=== PATIENT | male | born 1965 | race Native Hawaiian/Other Pacific Islander ===

== ENCOUNTER 2022-10-26 09:06 | Observation (INO) | payer OTHER ==
[~2022-10-26] VITALS: Ht 180.3 cm; Wt 65.0 kg
[2022-10-26] VITALS (10 sets, daily range): BP systolic 103–127; BP diastolic 69–78; TEMP 98–99.1; Ht 180.3 cm; Wt 65.0 kg
[2022-10-26 09:25] LABS: PLATELET COUNT 203 K/uL (142-355)
[2022-10-26 09:37] LABS: POTASSIUM 3.7 mmol/L (3.6-5.2)
[2022-10-26 09:44] LABS: PARTIAL THROMBOPLASTIN TIME 31.3 SECONDS (24.5-33.6)
[2022-10-27 03:50] VITALS: BP 107/74; TEMP 98.5
[2022-10-27 08:00] VITALS: BP 115/67; TEMP 98.63
[2022-10-27 12:00] VITALS: BP 103/65; TEMP 97.8
[2022-10-27] MEDS ORDERED: PRED10TA27 PO (15:30)
[2022-10-27] MEDS ORDERED: AZIT250T3 PO (15:31)
[2022-10-27] MEDS ORDERED: ALBU90AE13 INH (15:33)
== END 2022-10-27 14:38 | disposition home or self-care (01) ==
LOC: ED 09:06 → MED/SURG 12:20
PROVIDERS: Emergency Medicine; ADMIT Internal Medicine; ATTEND Internal Medicine
DX: J44.1 Chronic obstructive pulmonary disease with (acute) exacerbation (principal); Z72.0 Tobacco use; E87.1 Hypo-osmolality and hyponatremia
CPT/HCPCS: 80053; 83880; 84484; 85027; 85379; 85610; 85730; 87502; 87635; 93005; 94664; 94760; 96365; 96366; 96372; 96375; 99220; 99284; G0378; J0456; J0696; J1650; J2920; U0003

== ENCOUNTER 2023-06-20 10:57 | Emergency (ER) | payer OTHER ==
[~2023-06-20] VITALS: Ht 180.3 cm; Wt 65.8 kg
[2023-06-20 10:57] VITALS: BP 125/84; TEMP 98.2
[~2023-06-20 10:57] MED LIST: ALBU90AE13 INH; AZIT250T3 PO; PRED10TA27 PO
[2023-06-20 11:29] LABS: PLATELET COUNT 146 K/uL (142-355)
== END 2023-06-20 15:16 | disposition home or self-care (01) ==
LOC: ED 10:57
PROVIDERS: Family Medicine
DX: R44.3 Hallucinations, unspecified (principal); F17.210 Nicotine dependence, cigarettes, uncomplicated; F10.90 Alcohol use, unspecified, uncomplicated; F12.90 Cannabis use, unspecified, uncomplicated
CPT/HCPCS: 80053; 80307; 80320; 81002; 85027; 87635; 93005; 99285; U0003